=== PATIENT | male | born 1960 | race Caucasian/White ===

== ENCOUNTER → 2017-02-05 | Outpatient (CLI) | payer OTHER ==
--- NOTE | 2017-02-05 12:30 | RADIOLOGY REPORT (SQ) ---
EXAM DESCRIPTION: KNEE BILATERAL 1-2 VIEWS COMPLETED DATE/TIME: 02/05/2017 11:31 am REASON FOR STUDY: OA BILAT KNEES, RIGHT ANKLE M17.9 OSTEOARTHRITIS OF KNEE, UNSPECIFIED COMPARISON: None. NUMBER OF VIEWS: Four views. TECHNIQUE: AP and lateral standing bilateral knees. LIMITATIONS: None. FINDINGS: There is joint space narrowing in the medial compartments bilaterally. Osteophyte formati on in the right medial compartment. Joint space narrowing in the patellofemoral compartments. Osteo phytes in the right patellofemoral compartment. No effusions. IMPRESSION: Osteoarthritis. TECHNICAL DOCUMENTATION: JOB ID: [id number] [employer]- All Rights Reserved
--- NOTE | 2017-02-05 12:31 | RADIOLOGY REPORT (SQ) ---
EXAM DESCRIPTION: ANKLE LEFT AP/LATERAL COMPLETED DATE/TIME: 02/05/2017 11:50 am REASON FOR STUDY: OA BILAT KNEES, LEFT ANKLE M17.9 OSTEOARTHRITIS OF KNEE, UNSPECIFIED COMPARISON: None. NUMBER OF VIEWS: Three views. TECHNIQUE: AP, lateral, and oblique radiographic images acquired of the left ankle. LIMITATIONS: None. FINDINGS: MINERALIZATION: Normal. BONES: No acute fracture or dislocation. No worrisome bone lesions. JOINTS: There is some was sclerosis involving the subtalar joints, but the joint spaces appear to be fairly well-maintained. SOFT TISSUES: No soft tissue swelling. No foreign body. OTHER: No other significant finding. IMPRESSION: Cannot exclude mild subtalar degenerative joint changes. TECHNICAL DOCUMENTATION: JOB ID: [id number] [employer]- All Rights Reserved
== END ==
LOC: RAD 10:49
DX: M17.0 Bilateral primary osteoarthritis of knee (principal)